=== PATIENT | male | born 1990 | race Caucasian/White ===

== ENCOUNTER 2016-09-12 14:26 | Emergency (ER) | payer OTHER, MEDICAID ==
--- NOTE | 2016-09-12 15:04 | ER Document Report ---
ED General - General Stated Complaint: POSSIBLE SEIZURES Time seen by provider: 15:01 Mode of Arrival: Ambulatory Information source: Patient Notes: This is a 26-year-old man with a history of autism/cerebral palsy, TBI (6 months old) who was brought in by ambulance after a grand mal seizure witnessed by the parents. Patient's baseline is that he is nonverbal but the parents can find ways to communicate with him. The patient's mother heard a bang and went into his room and found him at his desk where he had fallen out of his chair. The parents describe the patient with tonic-clonic activity, and an episode of flexion lasting approximately 2 minutes. Patient did have blood in the mouth from a tongue bite. They're unsure about incontinence (the patient wears pull- ups). Currently the patient is back to baseline. Review of systems: Parents deny any recent fevers chills, nausea vomiting TRAVEL OUTSIDE OF THE [place] IN LAST 30 DAYS: No - HPI Onset: Just prior to arrival Onset/Duration: Sudden Quality of pain: No pain Severity: None Pain Level: Denies Associated symptoms: denies: Chills, Nonproductive cough, Productive cough, Fever, Shortness of breath Exacerbated by: Denies Relieved by: Denies Similar symptoms previously: Yes Recently seen / treated by doctor: No - Related Data Allergies/Adverse Reactions: No Known Allergies Allergy (Verified 10/07/14 14:41) Past Medical History - General Information source: Parent - Social History Smoking Status: Never Smoker Cigarette use (# per day): No Chew tobacco use (# tins/day): No Frequency of alcohol use: None Drug Abuse: None Lives with: Family Family History: Reviewed & Not Pertinent Patient has suicidal ideation: No Patient has homicidal ideation: No - Past Medical History Cardiac Medical History: Reports: None Pulmonary Medical History: Reports: None EENT Medical History: Reports: None Neurological Medical History: Reports: Other - Autism, cerebral palsy, traumatic brain injury, evaluated for seizures in the past Endocrine Medical History: Reports: None Renal/ Medical History: Reports: None Malignancy Medical History: Reports None GI Medical History: Reports: None Musculoskeltal Medical History: Reports None Skin Medical History: Reports None Psychiatric Medical History: Reports: None Traumatic Medical History: Reports: Hx Traumatic Brain Injury Infectious Medical History: Reports: None Surgical Hx: Other - Noncontributory - Immunizations Hx Diphtheria, Pertussis, Tetanus Vaccination: Yes Review of Systems - Review of Systems Constitutional: denies: Chills, Fever EENT: No symptoms reported Cardiovascular: No symptoms reported Respiratory: No symptoms reported Gastrointestinal: No symptoms reported Genitourinary: No symptoms reported Male Genitourinary: No symptoms reported Musculoskeletal: No symptoms reported Skin: No symptoms reported Hematologic/Lymphatic: No symptoms reported Neurological/Psychological: See HPI Physical Exam - Vital signs Vitals: Temp Pulse BP Pulse Ox 97.5 F 108 H 109/57 L 98 09/12/16 15:56 09/12/16 15:56 09/12/16 15:56 09/12/16 15:56 Notes: Physical exam: GENERAL: Patient is alert, nonverbal, does appear calm. HEAD: He does have a right frontal hematoma, normocephalic. EYES: Pupils equal round and reactive to light, extraocular movements intact, sclera anicteric, conjunctiva are normal. ENT: TMs normal, nares patent, oropharynx clear without exudates. Patient does have mild bite to the inner lip with some dried bleeding. There is no obvious tongue bites. The teeth are intact. Moist mucous membranes. NECK: Cervical collar in place LUNGS: Breath sounds clear to auscultation bilaterally and equal. No wheezes rales or rhonchi. HEART: Regular rate and rhythm without murmurs, rubs or gallops. ABDOMEN: Soft, nontender, normoactive bowel sounds. No guarding, no rebound. No masses appreciated. EXTREMITIES: Normal range of motion, no pitting or edema. No clubbing or cyanosis. NEUROLOGICAL: Cranial nerves II through XII grossly intact. Normal speech, moving all extremities. PSYCH: Normal mood, normal affect. SKIN: Warm, Dry, normal turgor, no rashes or lesions noted. Course - Re-evaluation Re-evalutation: 09/12/16 18:22 A she was observed several hours in the ER and has been fine. He is alert and even though he is nonverbal he he does communicate with his parents. He is moving his head around and has no neck rigidity at all. There is no photophobia. He looks comfortable at this time. Discussed case with Dr. Leal who has seen the patient in the past. He did recommend that the patient start taking Keppra 500 mg twice a day. He does want to see the patient at 1:30 tomorrow afternoon. I've discussed this with the parents and they are in agreement with the plan. I will start the Keppra in the ER josafat. 09/12/16 18:34 - Vital Signs Vital signs: Temp Pulse Resp BP Pulse Ox 97.5 F 93 108/66 96 09/12/16 15:56 09/12/16 18:14 09/12/16 18:14 09/12/16 18:14 - Laboratory Result Diagrams: 09/12/16 15:20 09/12/16 15:20 Laboratory results interpreted by me: 09/12/16 09/12/16 09/12/16 15:20 15:20 16:38 Hgb 13.1 L Seg Neutrophils % 79.8 H Glucose 115 H Urine Urobilinogen 2.0 H - Diagnostic Test Radiology reviewed: Image reviewed, Reports reviewed - CT of the head shows chronic old changes. CT of the cervical spine shows no acute fracture. Discharge - Discharge Clinical Impression: seizure, contusion to the head Condition: Stable Disposition: HOME, SELF-CARE Instructions: New Seizure ([facility]) Additional Instructions: Recommendations: Start the Room: 500 mg twice daily. Follow-up with Dr. Leal: He said just come to the office at 1:30 PM. Tell the corporate communications intern that the ER doctor at spoken to Dr. Leal and Dr. Leal specifically requested that he be seen at 1:30 PM. Return to the emergency room for any concerns at shortness getting worse: Fever , chills, recurrent seizures. Prescriptions: Levetiracetam [Keppra 500 mg Tablet] 500 mg PO Q12 #60 tablet
[2016-09-12 15:37] LABS: ABSOLUTE LYMPHOCYTES (AUTO) 0.8 10^3/uL (0.5-4.7); ABSOLUTE MONOCYTES (AUTO) 0.3 10^3/uL (0.1-1.4); ABSOLUTE NEUT (AUTO) 4.6 10^3/uL (1.7-8.2); BASOPHILS % (AUTO) 0.5 % (0-2); HEMATOCRIT 39.7 % (37.9-51.0); HEMOGLOBIN 13.1 g/dL (13.5-17.0); HGB HCT DIFFERENCE -0.4; LYMPHOCYTES % (AUTO) 13.7 % (13-45); MEAN CORPUSCULAR HEMOGLOBIN 28.5 pg (27.0-33.4); MEAN CORPUSCULAR HGB CONC 33.1 g/dL (32.0-36.0); MEAN CORPUSCULAR VOLUME 86 fl (80-97); RED CELL DISTRIBUTION WIDTH 12.9 % (11.5-14.0); SEGMENTED NEUTROPHILS % (AUTO) 79.8 % (42-78); WHITE BLOOD COUNT 5.7 10^3/uL (4.0-10.5)
[2016-09-12 15:47] LABS: ALANINE AMINOTRANSFERASE 30 U/L (21-72); ALBUMIN 4.3 g/dL (3.5-5.0); ALKALINE PHOSPHATASE 68 U/L (38-126); ANION GAP 9 (5-19); ASPARTATE AMINO TRANSFERASE 20 U/L (17-59); BILIRUBIN,TOTAL 0.9 mg/dL (0.2-1.3); BLOOD UREA NITROGEN 10 mg/dL (7-20); CARBON DIOXIDE 27 mmol/L (22-30); CHLORIDE 106 mmol/L (98-107); CREATININE RESULT 0.59 mg/dL (0.52-1.25); GLUCOSE 115 mg/dL (75-110); POTASSIUM 4.4 mmol/L (3.6-5.0); SODIUM 142.4 mmol/L (137-145); TOTAL PROTEIN 6.4 g/dL (6.3-8.2)
[2016-09-12 16:52] LABS: APPEARANCE,URINE CLEAR; BILIRUBIN,URINE NEGATIVE (NEGATIVE); GLUCOSE, URINE NEGATIVE (NEGATIVE); KETONES,URINE NEGATIVE (NEGATIVE); LEUKOCYTE ESTERASE,URINE NEGATIVE (NEGATIVE); NITRITE,URINE NEGATIVE (NEGATIVE); PROTEIN,URINE NEGATIVE (NEGATIVE); URINE SPECIFIC GRAVITY 1.019
[2016-09-12 18:15] VITALS: BP 108/66
[2016-09-12] MEDS ORDERED: LEVETIRACETAM 500 MG TABLET PO ONE (18:22)
== END 2016-09-12 18:35 | disposition home or self-care (01) ==
LOC: ER 14:26
DX: S00.93XA Contusion of unspecified part of head, initial encounter (principal); G40.909 Epilepsy, unspecified, not intractable, without status epilepticus; X58.XXXA Exposure to other specified factors, initial encounter; Y92.009 Unspecified place in unspecified non-institutional (private) residence as the place of occurrence of the external cause; F84.0 Autistic disorder; G80.9 Cerebral palsy, unspecified; Z87.820 Personal history of traumatic brain injury
CPT/HCPCS: 99284; 36415; 85025; 80053; 81001; 70450; 72125; J3490

== ENCOUNTER 2016-09-19 09:21 | Emergency (ER) | payer MEDICAID, OTHER ==
--- NOTE | 2016-09-19 09:58 | ER Document Report ---
ED GI/ - General Time seen by provider: 09:50 Mode of Arrival: Ambulatory Information source: Parent TRAVEL OUTSIDE OF THE [place] IN LAST 30 DAYS: No - HPI Patient complains to provider of: Dysuria, Hematuria Onset: Other - see HPI note Quality of pain: Burning Associated symptoms: Dysuria, Hematuria - General Chief Complaint: Pain With Urination Stated Complaint: BLOOD IN URINE Notes: Patient is a 26-year-old autistic male with cerebral palsy presents to the emergency department with hematuria. Patient is nonverbal. Patient's mother states that she discovered hematuria in the patient's pull-up yesterday and today. Patient's mother also states that the patient is in pain while he urinates. Patient was brought into the emergency department on 09/12 via EMS for a seizure. Patient had seizures in the past and he was started back on Keppra. Patient saw Dr. Leal the neurologist, will be getting EEGs completed this Tuesday and . Patient's primary physician is [facility], mother states she is looking to transfer to a doctor in [place] since they recently moved. Patient has no known allergies. ( GILA ALARCON) - Related Data Allergies/Adverse Reactions: No Known Allergies Allergy (Verified 09/19/16 09:39) Past Medical History - General Information source: Parent, [facility] Records - Social History Smoking Status: Never Smoker Cigarette use (# per day): No Chew tobacco use (# tins/day): No Smoking Education Provided: No Frequency of alcohol use: None Drug Abuse: None Lives with: Parents Family History: None Patient has suicidal ideation: No Patient has homicidal ideation: No Neurological Medical History: Reports: Hx Seizures Musculoskeltal Medical History: Reports Other - Cerebral palsy Psychiatric Medical History: Reports: Other - Autism Traumatic Medical History: Reports: Hx Traumatic Brain Injury - Immunizations Hx Diphtheria, Pertussis, Tetanus Vaccination: Yes Review of Systems - Review of Systems Constitutional: No symptoms reported EENT: No symptoms reported Cardiovascular: No symptoms reported Respiratory: No symptoms reported Gastrointestinal: No symptoms reported Genitourinary: See HPI, Burning, Dysuria, Hematuria Male Genitourinary: No symptoms reported Musculoskeletal: No symptoms reported Skin: No symptoms reported Hematologic/Lymphatic: No symptoms reported Neurological/Psychological: No symptoms reported -: Yes All other systems reviewed and negative Physical Exam - Vital signs Interpretation: Normal - General General appearance: Appears well, Alert In distress: Mild - HEENT Head: Normocephalic, Atraumatic Eyes: Normal Pupils: PERRL Mucous membranes: Moist - Respiratory Respiratory status: No respiratory distress Chest status: Nontender Breath sounds: Normal Chest palpation: Normal - Cardiovascular Rhythm: Regular Heart sounds: Normal auscultation Murmur: No - Abdominal Inspection: Normal Distension: No distension Bowel sounds: Normal Tenderness: Nontender Organomegaly: No organomegaly - Back Back: Normal, Nontender - Extremities General upper extremity: Normal inspection, Normal ROM, Normal strength General lower extremity: Normal inspection, Normal ROM, Normal strength - Neurological Neuro grossly intact: Yes Cognition: Normal [place] Coma Scale Eye Opening: Spontaneous Wes Coma Scale Verbal: None Wes Coma Scale Motor: Obeys Commands [place] Coma Scale Total: 11 Speech: Other - none - Psychological Associated symptoms: Normal affect, Normal mood - Skin Skin Temperature: Warm Skin Moisture: Dry - Vital signs Vitals: Temp Pulse Resp BP Pulse Ox 97.3 F 120 H 20 125/66 97 09/19/16 09:29 09/19/16 09:29 09/19/16 09:29 09/19/16 09:29 09/19/16 09:29 (GILA ALARCON) (LOBO DO) Discharge - Discharge Clinical Impression: Urinary tract infection Qualifiers: Urinary tract infection type: acute cystitis Hematuria presence: with hematuria Qualified Code(s): N30.01 - Acute cystitis with hematuria Condition: Stable Disposition: HOME, SELF-CARE Additional Instructions: Urinary Tract Infection: Your evaluation indicates that you have a urinary tract infection. This is due to germs growing in the bladder. This is a common problem. This infection usually responds quickly to antibiotics. Your antibiotic should be taken exactly as prescribed. Drink plenty of fluids -- three to four quarts a day. Certain urine infections require a culture. If the doctor obtained a culture, the results will be back in two days. You should call to see if a change in treatment is needed. A repeat urinalysis after you finish treatment is often recommended. The physician will let you know if further testing is required. Call the doctor if you develop fever, chills, flank pain, inability to urinate, or blood in the urine. TAKE THE MEDICATION PRESCRIBED. DRINK PLENTY OF FLUIDS. FOLLOW UP WITH YOUR DOCTOR IF NOT IMPROVING. RETURN TO THE EMERGENCY ROOM IF ANY NEW OR WORSENING SYMPTOMS. Prescriptions: Sulfamethoxazole/Trimethoprim [Septra-Ds 800-160 mg Tablet] 1 tab PO BID #14 tablet Scribe Attestation: 09/19/16 10:37 I personally performed the services described in the documentation, reviewed and edited the documentation which was dictated to the scribe in my presence, and it accurately records my words and actions. (LOBO DO) Scribe Documentation - Scribe Written by Prisca:: Gila Alarcon 09/19/16 10:15 acting as scribe for :: Nita
[2016-09-19 10:28] LABS: APPEARANCE,URINE SLIGHTLY-CLOUDY; BILIRUBIN,URINE NEGATIVE (NEGATIVE); GLUCOSE, URINE NEGATIVE (NEGATIVE); KETONES,URINE NEGATIVE (NEGATIVE); LEUKOCYTE ESTERASE,URINE MODERATE (NEGATIVE); NITRITE,URINE NEGATIVE (NEGATIVE); PROTEIN,URINE NEGATIVE (NEGATIVE)
[2016-09-19] MEDS ORDERED: SULFAMETHOXAZOLE/TRIMETHOPRIM 800-160 MG TABLET PO ONE (10:31)
[2016-09-19] MEDS ORDERED: LIDOCAINE 1% INJ-PF (10 MG/ML) 30 ML SDV INJ ONE (10:31)
[2016-09-19] MEDS ORDERED: CEFTRIAXONE INJ 1000 MG VIAL IM ONE (10:31)
[2016-09-19 11:02] VITALS: BP 121/79
== END 2016-09-19 11:02 | disposition home or self-care (01) ==
LOC: ER 09:21
DX: N30.01 Acute cystitis with hematuria (principal); R30.0 Dysuria; G80.9 Cerebral palsy, unspecified; F84.0 Autistic disorder; Z79.899 Other long term (current) drug therapy
CPT/HCPCS: 99283; 96372; 51701; 87086; 81001; J3490 ×2; J0696

== ENCOUNTER 2017-01-03 15:57 | Emergency (ER) | payer MEDICAID, OTHER ==
[2017-01-03] MEDS ORDERED: NORMAL SALINE 1000 ML 1,000 ML IV ONE (16:33)
--- NOTE | 2017-01-03 16:33 | ER Document Report ---
ED Medical Screen (RME) - General Mode of Arrival: Ambulatory Information source: Parent TRAVEL OUTSIDE OF THE [place] IN LAST 30 DAYS: No <JOCE MATTHEWS - Last Filed: 01/03/17 16:35> <FLORENTINO BEGUM - Last Filed: 01/03/17 19:07> - General Chief Complaint: Hematuria, Abdominal pain Stated Complaint: BLOOD IN URINE Time Seen by Provider: 01/03/17 16:27 Notes: Patient is an autistic 26 year old male that presents today with complains of blood in his urine. Mom states that the patient wears pull-ups, and she saw blood yesterday in his pull up after she took it off of him. Mom states today she got a call from the patient's day program today stating they also saw blood in urine today. Mom states patient has had urinary tract infections frequently recently, stating he has had 3 in the last 5 months. Patient was recently diagnosed with strep throat. (JOCE MATTHEWS) - Related Data Allergies/Adverse Reactions: No Known Allergies Allergy (Verified 01/03/17 16:59) Past Medical History Neurological Medical History: Reports: Hx Seizures Renal/ Medical History: Denies: Hx Peritoneal Dialysis Traumatic Medical History: Reports: Hx Traumatic Brain Injury - Immunizations Hx Diphtheria, Pertussis, Tetanus Vaccination: Yes <JOCE MATTHEWS - Last Filed: 01/03/17 16:35> Review of Systems - Review of Systems Genitourinary: Hematuria <JOCE MATTHEWS - Last Filed: 01/03/17 16:35> Physical Exam - HEENT Mucous membranes: Dry - Abdominal Distension: Distended - mild <JOCE MATTHEWS - Last Filed: 01/03/17 16:35> Course <JOCE MATTHEWS - Last Filed: 01/03/17 16:35> - Laboratory Result Diagrams: 01/03/17 17:45 01/03/17 17:45 <FLORENTINO BEGUM - Last Filed: 01/03/17 19:07> - Re-evaluation Re-evalutation: 01/03/17 19:07 I personally performed the services described in the documentation, reviewed and edited the documentation which was dictated to the scribe in my presence, and it accurately records my words and actions. (FLORENTINO BEGUM) - Vital Signs Vital signs: Temp Pulse Resp BP Pulse Ox 127 H 20 112/81 98 01/03/17 16:13 01/03/17 16:59 01/03/17 16:13 01/03/17 16:13 - Laboratory Laboratory results interpreted by me: 01/03/17 17:45 Hgb 13.1 L Hct 37.7 L Scribe Documentation - Scribe Written by Scribe:: Prisca Tucker, 01/03/2017 [id number] acting as scribe for :: Terrie <JOCE MATTHEWS - Last Filed: 01/03/17 16:35>
--- NOTE | 2017-01-03 17:09 | ER Document Report ---
ED GI/ - General Chief Complaint: Hematuria, Abdominal pain Stated Complaint: BLOOD IN URINE Time Seen by Provider: 01/03/17 16:27 Mode of Arrival: Ambulatory Information source: Parent Cannot obtain history due to: Mentally challenged TRAVEL OUTSIDE OF THE [place] IN LAST 30 DAYS: No - HPI Notes: 01/03/17 17:07 26-year-old male with history of autism and frequent UTIs presents with hematuria. Mother noticed his pull up yesterday there was some blood in the urine and then employees at the program he goes to notice blood today as well. Last bowel movement was yesterday there was no blood noted then. She gets a general feeling that he does not feel good though he does not complain specifically of any pain. He is nonverbal. She states he just does not seem to feel well, his abdomen appears to have been more swollen than normal, his appetite has been poor and he has been sleeping more than normal as well. No fever. He has had recent strep pharyngitis treated with a complete course of antibiotics in the last week and a half. - Related Data Allergies/Adverse Reactions: No Known Allergies Allergy (Verified 01/03/17 16:59) Past Medical History - General Information source: Parent - Social History Smoking Status: Never Smoker Family History: None Neurological Medical History: Reports: Hx Seizures Renal/ Medical History: Denies: Hx Peritoneal Dialysis Traumatic Medical History: Reports: Hx Traumatic Brain Injury - Immunizations Hx Diphtheria, Pertussis, Tetanus Vaccination: Yes Review of Systems - Review of Systems -: Yes ROS unobtainable due to patient's medical condition - Autism, nonverbal Constitutional: No symptoms reported Physical Exam - Vital signs Vitals: Pulse BP Pulse Ox 127 H 112/81 98 01/03/17 16:13 01/03/17 16:13 01/03/17 16:13 Interpretation: Normal, Tachycardic - Notes Notes: GENERAL: VS as per nursing doc. Well-appearing, well-nourished and in no acute distress. HEAD: Normal to inspection. EYES: Sclera anicteric, no conjunctival injection or discharge. ENT: Nares patent, oropharynx clear without exudates, moist mucous membranes. NECK: Normal range of motion, supple without lymphadenopathy. LUNGS: Breath sounds clear to auscultation bilaterally and equal. No wheezes rales or rhonchi. HEART: Regular rhythm without murmurs. Tachycardic ABDOMEN: Soft, non-tender, no clear distention, hyperactive bowel sounds. No guarding, no rebound. No masses appreciated. No Follett sign. BACK: No CVA tenderness. EXTREMITIES: Contractures with lower extremity splints noted. NEUROLOGICAL: Baseline, contractures noted. PSYCH: Cooperative. SKIN: Warm, dry, normal turgor. Course - Re-evaluation Re-evalutation: 01/03/17 19:58 Abdomen was reexamined and remains soft and nontender. The patient is smiling and happy. Discussed all findings with mother and she is aware of warning signs to watch for. I redid the exam and I could not see any source for bleeding. There will continue to watch this. - Vital Signs Vital signs: Temp Pulse Resp BP Pulse Ox 127 H 20 112/81 98 01/03/17 16:13 01/03/17 16:59 01/03/17 16:13 01/03/17 16:13 - Laboratory Result Diagrams: 01/03/17 17:45 01/03/17 17:45 Laboratory results interpreted by me: 01/03/17 17:45 Hgb 13.1 L Hct 37.7 L - Diagnostic Test Radiology reviewed: Image reviewed, Reports reviewed - No acute abnormality noted on CT. Some fecal retention. Patient did have a bowel movement yesterday. Discharge - Discharge Clinical Impression: Hematuria Condition: Good Disposition: HOME, SELF-CARE Instructions: Hematuria ([facility]) Additional Instructions: Return for any worsening or concerns, development of fever, repetitive vomiting. Call to arrange follow-up as discussed. Referrals: ABY CASTELLANO MD [Primary Care Provider] - Follow up in 3-5 days DEJAH SULTANA MD [[facility]] - Follow up as needed (This is the Urologist.)
[2017-01-03 18:17] LABS: APPEARANCE,URINE CLEAR; BILIRUBIN,URINE NEGATIVE (NEGATIVE); GLUCOSE, URINE NEGATIVE (NEGATIVE); KETONES,URINE NEGATIVE (NEGATIVE); LEUKOCYTE ESTERASE,URINE NEGATIVE (NEGATIVE); NITRITE,URINE NEGATIVE (NEGATIVE); PROTEIN,URINE NEGATIVE (NEGATIVE); URINE SPECIFIC GRAVITY 1.003; UROBILINOGEN,URINE NEGATIVE mg/dL (<2.0)
[2017-01-03 18:24] LABS: ABSOLUTE LYMPHOCYTES (AUTO) 1.2 10^3/uL (0.5-4.7); ABSOLUTE MONOCYTES (AUTO) 0.4 10^3/uL (0.1-1.4); ABSOLUTE NEUT (AUTO) 3.3 10^3/uL (1.7-8.2); BASOPHILS % (AUTO) 0.3 % (0-2); HEMATOCRIT 37.7 % (37.9-51.0); HEMOGLOBIN 13.1 g/dL (13.5-17.0); HGB HCT DIFFERENCE 1.6; LYMPHOCYTES % (AUTO) 25.2 % (13-45); MEAN CORPUSCULAR HEMOGLOBIN 29.3 pg (27.0-33.4); MEAN CORPUSCULAR HGB CONC 34.8 g/dL (32.0-36.0); MEAN CORPUSCULAR VOLUME 84 fl (80-97); MONOCYTES % (AUTO) 7.6 % (3-13); RED BLOOD COUNT 4.48 10^6/uL (4.35-5.55); RED CELL DISTRIBUTION WIDTH 13.1 % (11.5-14.0); SEGMENTED NEUTROPHILS % (AUTO) 66.9 % (42-78); WHITE BLOOD COUNT 4.9 10^3/uL (4.0-10.5)
[2017-01-03 18:47] LABS: ANION GAP 12 (5-19); BLOOD UREA NITROGEN 7 mg/dL (7-20); CALCIUM 9.2 mg/dL (8.4-10.2); CARBON DIOXIDE 26 mmol/L (22-30); CHLORIDE 103 mmol/L (98-107); CREATININE RESULT 0.59 mg/dL (0.52-1.25); GLUCOSE 90 mg/dL (75-110); POTASSIUM 3.9 mmol/L (3.6-5.0); SODIUM 140.8 mmol/L (137-145)
[2017-01-03 20:34] VITALS: BP 134/72
== END 2017-01-03 20:30 | disposition home or self-care (01) ==
LOC: ER 15:57
DX: R31.9 Hematuria, unspecified (principal); R10.9 Unspecified abdominal pain; Z87.440 Personal history of urinary (tract) infections; F84.0 Autistic disorder; Z87.820 Personal history of traumatic brain injury
CPT/HCPCS: 99284; 96360; 51701; 36415; 87086; 85025; 80048; 81001; 74176; J7030

== ENCOUNTER 2017-07-17 11:29 | Emergency (ER) | payer MEDICAID ==
[2017-07-17 11:44] VITALS: BP 134/86
--- NOTE | 2017-07-17 13:00 | ER Document Report ---
ED GI/ - General Chief Complaint: Urinary Problem Stated Complaint: POSSIBLE UTI Time Seen by Provider: 07/17/17 12:46 Notes: 26 yo male brought to ED by parent. pt is autistic and nonverbal. parent reports pt has had low grade fever x 2 days, dysuria, hematuria, not feeling well, poor appetite. Mother noticed his pull up yesterday with some blood in the urine + hx/o UTI with similar presentation. wears pull ups TRAVEL OUTSIDE OF THE [place] IN LAST 30 DAYS: No - HPI Patient complains to provider of: Dysuria Timing/Duration: Sudden Sexual history: Inactive Associated symptoms: Dysuria, Fever, Hematuria Exacerbated by: Denies Relieved by: Denies Similar symptoms previously: Yes - Related Data Allergies/Adverse Reactions: No Known Allergies Allergy (Verified 07/17/17 11:41) Past Medical History - General Information source: Parent - Social History Smoking Status: Never Smoker Chew tobacco use (# tins/day): No Frequency of alcohol use: None Drug Abuse: None Family History: None Patient has suicidal ideation: No Patient has homicidal ideation: No - Medical History Medical History: Other - severe autism, nonverbal Neurological Medical History: Reports: Hx Seizures Renal/ Medical History: Denies: Hx Peritoneal Dialysis Traumatic Medical History: Reports: Hx Traumatic Brain Injury Past Surgical History: Reports: Hx Orthopedic Surgery - right ankle - Immunizations Hx Diphtheria, Pertussis, Tetanus Vaccination: Yes Review of Systems - Review of Systems Constitutional: No symptoms reported EENT: No symptoms reported Cardiovascular: No symptoms reported Respiratory: No symptoms reported Gastrointestinal: No symptoms reported Genitourinary: See HPI Male Genitourinary: No symptoms reported Musculoskeletal: No symptoms reported Skin: No symptoms reported Hematologic/Lymphatic: No symptoms reported Neurological/Psychological: No symptoms reported Physical Exam - Vital signs Vitals: Temp Pulse Resp BP Pulse Ox 97.4 F 116 H 16 134/86 H 98 07/17/17 11:41 07/17/17 11:41 07/17/17 11:41 07/17/17 11:41 07/17/17 11:41 Interpretation: Normal - General General appearance: Appears well, Alert - HEENT Head: Normocephalic, Atraumatic Eyes: Normal Pupils: PERRL - Respiratory Respiratory status: No respiratory distress Chest status: Nontender Breath sounds: Normal Chest palpation: Normal - Cardiovascular Rhythm: Regular Heart sounds: Normal auscultation Murmur: No - Abdominal Inspection: Normal Distension: No distension Bowel sounds: Normal Tenderness: Nontender Organomegaly: No organomegaly - Back Back: Normal, Nontender - Extremities General upper extremity: Normal inspection, Nontender, Normal color, Normal ROM , Normal temperature General lower extremity: Normal inspection, Nontender, Normal color, Normal ROM , Normal temperature, Normal weight bearing. No: Patty's sign - Neurological Neuro grossly intact: Yes Cognition: Normal Orientation: AAOx4 [place] Coma Scale Eye Opening: Spontaneous [place] Coma Scale Verbal: Oriented Wes Coma Scale Motor: Obeys Commands Wes Coma Scale Total: 15 Speech: Normal Motor strength normal: LUE, RUE, LLE, RLE Sensory: Normal - Psychological Associated symptoms: Normal affect, Normal mood - Skin Skin Temperature: Warm Skin Moisture: Dry Skin Color: Normal Course - Re-evaluation Re-evalutation: 07/17/17 12:57 pt is afebrile, nontoxic. will treat for uncomplicated cystitis. urine culture is pending. parent instructed to f/u pcm tomorrow. agreeable with plan and stable for discharge 07/17/17 13:04 abdomen remains soft, nontender - Vital Signs Vital signs: Temp Pulse Resp BP Pulse Ox 97.4 F 116 H 16 134/86 H 98 07/17/17 11:41 07/17/17 11:41 07/17/17 11:41 07/17/17 11:41 07/17/17 11:41 Discharge - Discharge Clinical Impression: Dysuria Condition: Stable Disposition: HOME, SELF-CARE Instructions: Antibiotic Therapy ([facility]), Urinary Tract Infection ([facility]) Additional Instructions: I am treating Kennedy for a urinary tract infection Please take all antibiotic as prescribed Urine culture is pending. If any further treatment is needed, we will call you follow up with primary care tomorrow Prescriptions: Ciprofloxacin HCl [Cipro 500 mg Tablet] 500 mg PO BID #10 tablet Referrals: REZA HESS DO [Primary Care Provider] - Follow up as needed
== END 2017-07-17 13:15 | disposition home or self-care (01) ==
LOC: ER 11:29
DX: R30.0 Dysuria (principal); R50.9 Fever, unspecified; R31.9 Hematuria, unspecified; F84.0 Autistic disorder; Z87.440 Personal history of urinary (tract) infections; Z87.820 Personal history of traumatic brain injury
CPT/HCPCS: 51701; 87086; 99283

== ENCOUNTER 2018-09-02 13:20 | Emergency (ER) | payer MEDICAID ==
[2018-09-02 13:30] VITALS: BP 121/72
--- NOTE | 2018-09-02 14:10 | ER Document Report ---
HPI - HPI Time Seen by Provider: 09/02/18 13:32 Pain Level: Denies Notes: Patient is a 28-year-old male patient who presents in the company of his mother for request for medication refill. Patient has history of severe autism and mother is his primary care provider. She states that patient usually takes Vimpat 200 mg twice daily for his seizures. She states this is prescribed by his neurologist Dr. Boone. Mother reports allegedly Dr. Boone has left town and she did not know this was occurring. Patient's last dose of medication was 2 days ago. - CONSTITUTIONAL Constitutional: DENIES: Fever, Chills Past Medical History - General Information source: Patient, Parent - Social History Smoking Status: Never Smoker Frequency of alcohol use: None Drug Abuse: None Family History: None Patient has suicidal ideation: No Patient has homicidal ideation: No Neurological Medical History: Reports: Hx Seizures Renal/ Medical History: Denies: Hx Peritoneal Dialysis Traumatic Medical History: Reports: Hx Traumatic Brain Injury Past Surgical History: Reports: Hx Orthopedic Surgery - right ankle - Immunizations Hx Diphtheria, Pertussis, Tetanus Vaccination: Yes Vertical Provider Document - CONSTITUTIONAL Notes: PHYSICAL EXAMINATION: GENERAL: Well-appearing, well-nourished and in no acute distress. HEAD: Atraumatic, normocephalic. EYES: Pupils equal round extraocular movements intact, conjunctiva are normal. ENT: Nares patent NECK: Normal range of motion LUNGS: No respiratory distress Musculoskeletal: Normal range of motion NEUROLOGICAL: Normal speech, normal gait. PSYCH: Normal mood, normal affect. SKIN: Warm, Dry, normal turgor, no rashes or lesions noted. - INFECTION CONTROL TRAVEL OUTSIDE OF THE [place] IN LAST 30 DAYS: No Course - Re-evaluation Re-evalutation: Medication was refilled with one refill provided. Mother given multiple contacts to establish new primary care as well as follow-up with a new neurologist. Mother verbalizes understanding and will get patient established with any primary care provider so that he can have better continuity of care. Patient has no acute needs today. - Vital Signs Vital signs: Temp Pulse Resp BP Pulse Ox 97.9 F 122 H 18 121/72 98 09/02/18 13:29 09/02/18 13:29 09/02/18 13:29 09/02/18 13:29 09/02/18 13:29 Discharge - Discharge Clinical Impression: Medication refill Condition: Stable Disposition: HOME, SELF-CARE Additional Instructions: His medication was refilled today with 1 refill. Please have the pharmacy call if there is any issue with this. You may want to try the following new clinics here in [facility] to establish primary care and call and see if they have neurology services. [facility] has an office here in [place]. [facility] has an office on [facility] here in [place]. [facility] has a clinic here in [place]. I believe at least one of these does have neurology coverage a few times weekly. Prescriptions: Lacosamide [Vimpat] 200 mg PO BID #60 tablet Referrals: [facility] [Provider Group] - Follow up as needed
== END 2018-09-02 14:23 | disposition home or self-care (01) ==
LOC: ER 13:20
DX: Z76.0 Encounter for issue of repeat prescription (principal); Z79.899 Other long term (current) drug therapy
CPT/HCPCS: 99281

== ENCOUNTER 2018-10-06 11:31 | Emergency (ER) | payer MEDICAID ==
[2018-10-06 11:51] VITALS: BP 99/64
--- NOTE | 2018-10-06 12:09 | ER Document Report ---
ED Medical Screen (RME) - General Chief Complaint: Cough Stated Complaint: COUGH Time Seen by Provider: 10/06/18 12:07 Primary Care Provider: REZA HESS DO [Primary Care Provider] - Follow up as needed Mode of Arrival: Ambulatory Information source: Parent Notes: This is a 28-year-old man with autism who is brought into the emergency room because of cough, congestion, subjective fevers. TRAVEL OUTSIDE OF THE [place] IN LAST 30 DAYS: No - Related Data Allergies/Adverse Reactions: No Known Allergies Allergy (Verified 10/06/18 11:43) Past Medical History Neurological Medical History: Reports: Hx Seizures Renal/ Medical History: Denies: Hx Peritoneal Dialysis Traumatic Medical History: Reports: Hx Traumatic Brain Injury Past Surgical History: Reports: Hx Orthopedic Surgery - right ankle - Immunizations Hx Diphtheria, Pertussis, Tetanus Vaccination: Yes Physical Exam - Vital signs Vitals: Temp Pulse Resp BP Pulse Ox 99.0 F 114 H 18 99/64 L 97 10/06/18 11:48 10/06/18 11:48 10/06/18 11:48 10/06/18 11:48 10/06/18 11:48 Course - Vital Signs Vital signs: Temp Pulse Resp BP Pulse Ox 99.0 F 114 H 18 99/64 L 97 10/06/18 11:48 10/06/18 11:48 10/06/18 11:48 10/06/18 11:48 10/06/18 11:48 Doctor's Discharge - Discharge Referrals: REZA HESS DO [Primary Care Provider] - Follow up as needed
--- NOTE | 2018-10-06 12:40 | RADIOLOGY REPORT (SQ) ---
EXAM DESCRIPTION: CHEST 2 VIEWS COMPLETED DATE/TIME: 10/06/2018 12:29 pm REASON FOR STUDY: cough, fever COMPARISON: None. EXAM PARAMETERS: NUMBER OF VIEWS: two views TECHNIQUE: Digital Frontal and Lateral radiographic views of the chest acquired. RADIATION DOSE: NA LIMITATIONS: none FINDINGS: LUNGS AND PLEURA: No opacities, masses or pneumothorax. No pleural effusion. MEDIASTINUM AND HILAR STRUCTURES: No masses or contour abnormalities. HEART AND VASCULAR STRUCTURES: Heart normal size. No evidence for failure. BONES: No acute findings. HARDWARE: None in the chest. OTHER: No other significant finding. IMPRESSION: 1. NO ACUTE RADIOGRAPHIC FINDING IN THE CHEST. TECHNICAL DOCUMENTATION: JOB ID: [id number] [employer]- All Rights Reserved Reading location - IP/workstation name: [email or web address]
[2018-10-06 12:45] LABS: A TYPE INFLUENZA AG NEGATIVE (NEGATIVE); B INFLUENZA AG NEGATIVE (NEGATIVE)
--- NOTE | 2018-10-06 14:29 | ER Document Report ---
ED General - General Chief Complaint: Cough Stated Complaint: COUGH Time Seen by Provider: 10/06/18 12:07 Primary Care Provider: REZA HESS DO [NO LOCAL MD] - Follow up as needed Mode of Arrival: Ambulatory Notes: 28-year-old otherwise healthy male with autism presents to the emergency department for cough, "acting weird ", nasal congestion, reduced appetite Patient is nonverbal. Mom states patient has had chills and subjective fevers. Mom denies nausea, vomiting, diarrhea, states patient does not cough at baseline history of. Mom states patient has not had a bowel movement in a couple of days. No other complaints. TRAVEL OUTSIDE OF THE [place] IN LAST 30 DAYS: No - Related Data Allergies/Adverse Reactions: No Known Allergies Allergy (Verified 10/06/18 11:43) Past Medical History - General Information source: Parent - Social History Smoking Status: Never Smoker Chew tobacco use (# tins/day): No Frequency of alcohol use: None Drug Abuse: None Family History: None Patient has suicidal ideation: No Patient has homicidal ideation: No Neurological Medical History: Reports: Hx Seizures Renal/ Medical History: Denies: Hx Peritoneal Dialysis Traumatic Medical History: Reports: Hx Traumatic Brain Injury Past Surgical History: Reports: Hx Orthopedic Surgery - right ankle - Immunizations Hx Diphtheria, Pertussis, Tetanus Vaccination: Yes Review of Systems - Review of Systems Constitutional: See HPI EENT: See HPI Cardiovascular: No symptoms reported Respiratory: See HPI Gastrointestinal: See HPI Genitourinary: No symptoms reported Male Genitourinary: No symptoms reported Musculoskeletal: No symptoms reported Skin: No symptoms reported Hematologic/Lymphatic: No symptoms reported Neurological/Psychological: No symptoms reported Physical Exam - Vital signs Vitals: Temp Pulse Resp BP Pulse Ox 99.0 F 114 H 18 99/64 L 97 10/06/18 11:48 10/06/18 11:48 10/06/18 11:48 10/06/18 11:48 10/06/18 11:48 - Notes Notes: PHYSICAL EXAMINATION: Reviewed vital signs and charting by RN GENERAL: Alert, interacts well. No acute distress. HEAD: Normocephalic, atraumatic. EYES: Pupils equal, round. Extraocular movements intact. ENT: Oral mucosa moist, tongue midline. No tonsillar hypertrophy or erythema. NECK: Full range of motion. Supple. Trachea midline. LUNGS: Clear to auscultation bilaterally, no wheezes, rales, or rhonchi. No respiratory distress. HEART: Regular rate and rhythm. No murmur ABDOMEN: soft, non-tender. + distension. Bowel sounds present in all 4 quadrants. no McBurney's point tenderness, no Davenport sign. EXTREMITIES: Moves all 4 extremities spontaneously. No edema, No cyanosis. BACK: no cervical, thoracic, lumbar midline tenderness. No saddle anesthesia, normal distal neurovascular exam. NEUROLOGICAL: Alert. Nonverbal at baseline. PSYCH: Normal affect, normal mood. SKIN: Warm, dry, normal turgor. No rashes or lesions noted. Course - Re-evaluation Re-evalutation: 10/06/18 14:29 Well-appearing 28-year-old male with autism presents for cold symptoms. Rapid influenza was negative, rapid strep negative, chest x-ray was negative for consolidation or concern for pneumonia. Chest x-ray did show large amount of air in the stomach and proximal duodenum. Plan to get a KUB to assess rest of intestines and colon. 10/06/18 15:32 KUB showed constipation but no obstruction. Will instruct mom to give patient MiraLAX. Patient otherwise stable and well-appearing. Will discharge home. - Vital Signs Vital signs: Temp Pulse Resp BP Pulse Ox 99.0 F 114 H 18 99/64 L 97 10/06/18 11:48 10/06/18 11:48 10/06/18 11:48 10/06/18 11:48 10/06/18 11:48 Discharge - Discharge Clinical Impression: Constipation Qualifiers: Constipation type: unspecified constipation type Qualified Code(s): K59.00 - Constipation, unspecified Condition: Good Disposition: HOME, SELF-CARE Instructions: Constipation ([facility]) Additional Instructions: You should take 8 caps of MiraLAX and placed in 1 liter of fluid. Provide your child with one half the solution and if they do not have a bowel movement within 4 hours given the other half. After your child's constipation is resolved keep them on 1 capful daily. Please follow-up with your child's primary care doctor return immediately if your child develops persistent vomiting, becomes lethargic, has worsening abdominal pain, develops a fever greater than 101, or has any other symptoms that are concerning to you. Referrals: REZA HESS, [NO LOCAL MD] - Follow up as needed
--- NOTE | 2018-10-06 15:01 | RADIOLOGY REPORT (SQ) ---
EXAM DESCRIPTION: KUB/ABDOMEN (SINGLE VIEW) COMPLETED DATE/TIME: 10/06/2018 2:44 pm REASON FOR STUDY: abd pain COMPARISON: None. NUMBER OF VIEWS: One view. TECHNIQUE: Supine radiographic image of the abdomen acquired. LIMITATIONS: None. FINDINGS: BOWEL GAS PATTERN: Gas pattern is nonobstructive. There is large amount of stool througho ut the colon consistent with constipation. CALCIFICATIONS: No suspicious calcifications. SOFT TISSUES: No gross mass or suggestion of organomegaly. HARDWARE: None in the abdomen. BONES: No acute fracture. No worrisome bone lesions. OTHER: No other significant finding. IMPRESSION: Constipation. No obstruction. TECHNICAL DOCUMENTATION: JOB ID: [id number] [employer]- All Rights Reserved Reading location - IP/workstation name: [email or web address]
== END 2018-10-06 16:33 | disposition home or self-care (01) ==
LOC: ER 11:31
DX: K59.00 Constipation, unspecified (principal); R05 Cough; R09.81 Nasal congestion; R63.0 Anorexia; F84.0 Autistic disorder
CPT/HCPCS: 71046; 74018; 87070; 87804; 87880; 99283